=== PATIENT | male | born 1990 | race Caucasian/White ===

== ENCOUNTER 2021-04-04 06:30 | Emergency (ER) | payer OTHER, SELFPAY ==
[2021-04-04 06:48] VITALS: BP 127/84; PULSE 93; RESP 18; TEMP 36.8; O2SAT 95; BMI 29.6
[2021-04-04] MEDS: predniSONE 20 MG TABLET 60 MG PO (07:43)
--- NOTE | 2021-04-04 07:46 | ED_ITS ---
HPI - SOB/Dyspnea General Chief Complaint: Dyspnea Stated Complaint: Asthma Time Seen by Provider: 04/04/21 07:18 Source: patient Mode of arrival: ambulatory Limitations: no limitations History of Present Illness HPI Narrative: 30-year-old male with a history of asthma who presents emergency department for evaluation of shortness of breath x2 weeks. Patient states that he has been short of breath and has been wheezing. He states that he also has a frequent, dry, nonproductive cough. He denied chest pain. The patient states that he was seen by his provider and started on a tapering course of steroids. He states that initially that helped however his symptoms have gotten worse. He states he has been off steroids for 2 days. He has also been using his albuterol inhaler free out of his inhaler 2 has also been using his nebulized albuterol with only minimal improvement of his symptoms. He denies fever, chills, nausea, vomiting, chest pain, abdominal pain, myalgias or arthralgias. Related Data Previous Rx's Medication Instructions Recorded albuterol sulfate 90 mcg/actuation 2 puff INHALATION Q4-6H PRN #8.5 g 04/04/21 aerosol inhaler azithromycin 250 mg tablet See Rx Instructions .ROUTE 04/04/21 (Zithromax Z-Joe) .COMPLEX #6 tab benzonatate 200 mg capsule 200 mg PO TID PRN #15 cap 04/04/21 prednisone 20 mg tablet 60 mg PO DAILY 7 Days #21 tab 04/04/21 Allergies Allergy/AdvReac Type Severity Reaction Status Date / Time cat dander [CATS] Allergy Unknown UNKNOWN Unverified 02/19/20 16:05 Review of Systems Review of Systems: Yes all other systems are reviewed and are negative FOR[facility]LY [facility], [facility] Past Medical History FOR[facility] Narrative: Past medical history: Asthma. Past surgical history: None. Social history: He denies tobacco use. He occasionally drinks alcohol. He denies drug use. Social History Social History Alcohol intake: never Patient Tobacco Use Status: Never used Tobacco Use of substances other than those prescribed or required for medical reasons: No Advance Directives: No Physical Exam Vital Signs: Vital Signs: Last Vital Signs Temp 98.2 F 04/04/21 06:48 Pulse 93 04/04/21 06:48 Resp 18 04/04/21 06:48 BP 127/84 04/04/21 06:48 Pulse Ox 95 04/04/21 06:48 Body Mass Index 29.6 Const: General: cooperative and no acute distress Orientation/consciousness: oriented to person and oriented to place Limitations: no limitations HENMT: Head: Yes normal to inspection, Yes normocephalic and Yes atraumatic Ears: external ears normal General nose exam: Normal external nose present Face and sinus: Yes normal facial exam Mouth: Normal oral and palatal mucosa present Throat: Yes posterior oropharynx normal Eyes: General: appearance normal, both eyes and all related structures Pupils: Equal, round and reactive pupils present Neck: Neck: Yes normal visual inspection, Yes no lymphadenopathy, Yes trachea midline and Yes supple Chest: Chest palpation & inspection: normal inspection of the chest and normal palpation of entire chest wall Resp: Effort & Inspection: normal respiratory effort and able to speak in complete sentences Auscultation: no rales, no rhonchi and wheezes (Diffuse wheezing) Cardio: Rate: regular rate Rhythm: regular rhythm Heart sounds: S1 normal heart sound present, S2 normal heart sound present and no murmurs GI: Inspection: Yes normal to inspection Palpation (GI): Soft to palpation, nontender and no guarding Auscultation: normal bowel sounds : General: Yes no CVA tenderness Back/Spine/Pelvis: Back: no CVA tenderness Skin: General skin exam: no rashes or lesions noted Neuro: General: oriented to person and oriented to place Cranial nerves: Yes CN's II-XII intact bilaterally and Yes Equal, round and reactive pupils present Cognition (Neuro): normal cognition Motor exam (neuro): 5/5 motor strength present throughout Extrem: General: Yes normal to inspection Psych: Appearance: grossly normal Speech and movement: Normal speech and movement present Affect: normal affect Attitude: cooperative Thought process: Normal thought process present Thought content: Normal thought content present Course Course Course Narrative: 30-year-old male with a history of asthma who presents emergency department for evaluation shortness of breath x2 weeks. He finished to tapering course of steroids 2 days prior he states that his symptoms are not worse. He has been using his albuterol inhaler frequently and he ran out of this 2 days prior. He has also been using nebulized albuterol with only minimal improvement of her shortness of breath. Patient's vital signs were normal. Patient's lung exam did reveal diffuse wheezing. Patient's presentation is consistent with an asthma exacerbation, he got some improvement with the tapering course of steroids and I suspect that he has a large inflammatory component to his bronchospasms. Patient may also have an atypical bacterial infection. Patient will be treated with Zithromax Z-Joe and prednisone 60 mg once a day for 1 week, he was given his 1st dose here in the emergency department. Patient was also give albuterol inhaler with spacer x4 puffs. Patient is also requesting a medication for his cough the was prescribed Tessalon Perles 200 mg 3 times a day as needed for cough. He was discharged with verbal and printed instructions. Discharge Plan Discharge Clinical Impression: Bronchitis Asthma with exacerbation Qualifiers: Asthma severity: moderate Asthma persistence: persistent Qualified Code(s): J45.41 - Moderate persistent asthma with (acute) exacerbation Patient Disposition: Home, Self-Care Instructions: Asthma (ED), Acute Bronchitis (ED) Additional Instructions: Take prednisone 20 mg pills, 3 pills once a day for 7 days. Take Zithromax Z-Joe as prescribed. Use the albuterol inhaler with the spacer, 2 puffs every 4 hours as needed for shortness of breath. Take Tessalon Perles 200 mg, 1 pill 3 times a day as needed for cough. Follow-up with your doctor in 2 days. Please return to the emergency department if your symptoms get worse or if you develop any symptoms that are concerning to you. Prescriptions: New albuterol sulfate 90 mcg/actuation HFA aerosol inhaler 2 puff inhalation Q4-6H PRN (Reason: shortness of breath or wheezing) Qty: 8.5 RF: 0 azithromycin [Zithromax Z-Joe] 250 mg tablet See Rx Instructions .ROUTE .COMPLEX Qty: 6 RF: 0 benzonatate 200 mg capsule 200 mg PO TID PRN (Reason: cough) Qty: 15 RF: 0 prednisone 20 mg tablet 60 mg PO DAILY 7 Days Qty: 21 RF: 0
--- NOTE | 2021-04-04 07:47 | PC.NURSE ---
lungs - slight wheezing all lobes. md aware.
[2021-04-04] MEDS: Albuterol Sulfate 90 MCG 8 GM INHALER 4 PUFF INHALE (08:05)
[2021-04-04 08:07] VITALS: PULSE 87; O2SAT 95
== END 2021-04-04 09:26 | disposition home or self-care (01) ==
PROVIDERS: Emergency Provider Emergency Medicine Emergency Medical Services; PCP Internal Medicine
DX: J45.41 Moderate persistent asthma with (acute) exacerbation (principal); J40 Bronchitis, not specified as acute or chronic; Z79.899 Other long term (current) drug therapy
CPT/HCPCS: 94640; 99284

== ENCOUNTER 2022-01-09 06:12 | Emergency (ER) | payer OTHER, SELFPAY ==
--- NOTE | ~2022-01-09 | XR_ITS ---
EXAMINATION: XR CHEST CLINICAL INFORMATION: Cough COMPARISON: 04/27/2019 TECHNIQUE: Frontal view of the chest was obtained. FINDINGS: Normal symmetric lung volumes. No parenchymal consolidation. No pleural effusion. No pneumothorax. Cardiomediastinal silhouette and pulmonary vascularity are within normal limits. No acute osseous abnormalities. XR/XR chest 1V IMPRESSION: No acute findings.
[2022-01-09 06:25] VITALS: BP 119/75; PULSE 81; RESP 16; O2SAT 95; BMI 28.3
[2022-01-09 07:56] LABS: Influenza A Negative (Negative); Influenza B2 Negative (Negative)
[2022-01-09 08:07] LABS: COVID-19 Test Negative (Negative); IDNOW Serial# 9DB6401D
--- NOTE | 2022-01-09 14:37 | PC.NURSE ---
ATTEMPTED TO CALL PATIENT INTO ED. NO ANSWER IN WAITING ROOM.
== END 2022-01-09 16:31 | disposition left against medical advice (07) ==
PROVIDERS: Emergency Provider Emergency Medicine; PCP Internal Medicine
DX: J45.909 Unspecified asthma, uncomplicated (principal); Z20.822 Contact with and (suspected) exposure to COVID-19
CPT/HCPCS: 71045; 87502; 87635; 99281; 99283